=== PATIENT | male | born 1975 | race Caucasian/White ===

== ENCOUNTER 2025-03-20 13:14 | Emergency (ER) | payer OTHER ==
[~2025-03-20] VITALS: Ht 167.6 cm; Wt 95.3 kg
[2025-03-20] MEDS ORDERED: PENICILLIN VK500 MG PO (13:55)
== END 2025-03-20 14:00 | disposition home or self-care (01) ==
LOC: ED 13:14
DX: K04.7 Periapical abscess without sinus (principal); Z91.030 Bee allergy status